=== PATIENT | male | born 1960 | race Caucasian/White ===

== ENCOUNTER 2021-08-06 09:22 | Emergency (ER) | payer MEDICARE, OTHER ==
[~2021-08-06] VITALS: Ht 180.3 cm; Wt 85.7 kg
[2021-08-06 09:22] VITALS: BP 151/53
[~2021-08-06 09:22] MED LIST: ACTOS15 MG PO; AMBIEN 5 MG TABL5 M1 PO; CITRATE OF MAG296 ML PO; COLACE100 MG PO; GEODON80 MG PO; METFORMIN HCL500 MG PO; NORCO 5-325 TA1 EACH PO; WELLBUTRIN XL150 M1 PO; ZYRTEC10 MG PO
[2021-08-06] MEDS ORDERED: IBUPROFEN IB200 MG PO (10:23)
[2021-08-06] MEDS ORDERED: CYCLOBENZAPRINE5 MG PO (10:23)
== END 2021-08-06 10:49 | disposition home or self-care (01) ==
LOC: ER 09:22
DX: M79.601 Pain in right arm (principal); B19.20 Unspecified viral hepatitis C without hepatic coma; E11.9 Type 2 diabetes mellitus without complications; F32.9 Major depressive disorder, single episode, unspecified; F20.9 Schizophrenia, unspecified; F17.200 Nicotine dependence, unspecified, uncomplicated; Z79.84 Long term (current) use of oral hypoglycemic drugs; Z79.899 Other long term (current) drug therapy; Z88.0 Allergy status to penicillin; Z88.5 Allergy status to narcotic agent; Z88.8 Allergy status to other drugs, medicaments and biological substances